=== PATIENT | male | born 1960 | race Caucasian/White ===

== ENCOUNTER 2019-10-06 05:06 | Inpatient (IN) ==
--- NOTE | 2019-09-09 12:30 | PAT Medication Instructions ---
Medication Instructions Date of Service September 09, 2019 Home Medications albuterol sulfate [ProAir HFA] 2 puff INHALATION Q6H PRN ascorbic acid (vitamin C) [Vitamin C] 1,500 mg PO QAM atorvastatin 20 mg PO HS garlic 1 tab PO QAM ibuprofen 600 mg PO Q6H PRN lisinopril 20 mg PO QAM turmeric root extract 500 mg PO QAM vitamin E 400 unit PO QAM ASK your surgeon for instructions ibuprofen 600 mg PO Q6H PRN STOP taking 2 weeks before surgery (or as soon as possible if surgery is within 2 weeks) garlic 1 tab PO QAM turmeric root extract 500 mg PO QAM vitamin E 400 unit PO QAM DO NOT take the morning of surgery ascorbic acid (vitamin C) [Vitamin C] 1,500 mg PO QAM lisinopril 20 mg PO QAM Take morning of surgery With a small sip of water, OTHERWISE NOTHING TO EAT OR DRINK AFTER MIDNIGHT: albuterol sulfate [ProAir HFA] 2 puff INHALATION Q6H PRN (use if needed; please bring with you to hospital day of surgery if possible) Take evening before surgery albuterol sulfate [ProAir HFA] 2 puff INHALATION Q6H PRN (if needed) atorvastatin 20 mg PO HS Other Notes If you have any questions please call us at [phone] or [phone] or [phone] or [phone]
--- NOTE | 2019-09-10 12:27 | Anesthesiology Consultation ---
Date of Service September 10, 2019 Assessment & Plan (1) Encounter for pre-operative examination: Chart Review Chart Review: Acceptable Risk for Surgery (pending surgeon-ordered PCP clearance 09/17 (Varsha Rivera)) and Patient seen in Pre Admission Testing Teaching & Discussion Pre-Anesthesia Teaching/Discussion Notes: Instructed NPO after midnight before surgery,except medications with 15 cc of water. Medication instructions provide d according to the PAT guidelines. History Surgery Operation Date: 10/06/19 09:00 Proposed Procedures p Right Total Anterior Hip Arthroplasty - Jorge Alberto Mariano DO Height/Weight Height: 5 ft 11 in Weight: 92.1 kg Allergies Allergy/AdvReac Type Severity Reaction Status Date / Time No Known Allergies Allergy Verified 09/08/19 08:07 Medications Home Medications Medication Instructions Recorded Confirmed Last Taken albuterol sulfate [ProAir HFA] 2 puff INHALATION Q6H PRN 09/08/19 09/08/19 Unknown ascorbic acid (vitamin C) [Vitamin 1,500 mg PO QAM 09/08/19 09/08/19 Unknown C] atorvastatin 20 mg PO HS 09/08/19 09/08/19 Unknown garlic 1 tab PO QAM 09/08/19 09/08/19 Unknown ibuprofen 600 mg PO Q6H PRN 09/08/19 09/08/19 Unknown lisinopril 20 mg PO QAM 09/08/19 09/08/19 Unknown turmeric root extract 500 mg PO QAM 09/08/19 09/08/19 Unknown vitamin E 400 unit PO QAM 09/08/19 09/08/19 Unknown Past Medical History Medical History GERD (gastroesophageal reflux disease) controlled History of bronchitis remote hx- inhaler PRN (no recent use) Hyperlipidemia Hypertension Exercise / Class Metabolic Activity II 4-5 Yardwork/Stairs/Walk up hill Past Family History Family History Father Family history of esophageal cancer Past Surgical History Surgical History H/O nasal septoplasty History of colonoscopy History of esophagogastroduodenoscopy (EGD) History of tonsillectomy Past Anesthesia History No Hx of Anesthesia Complications and No Family Hx of Anesthesia Complications History of PONV No Hx of PONV and No Hx of Motion Sickness Social History Smoking Status: Never smoker Do You Dip or Chew Tobacco: No Hx Alcohol Use: Yes Alcohol type: hard liquor alcohol intake frequency: holidays/special occasions only Hx Substance Use: No Review of Systems Reflux controlled. Patient denies chest pain, shortness of breath, dyspnea on exertion, reflux, cough, wheezing, palpitations. Physical Exam Vital Signs VITALS BP 122/79 P 79 TEMP 98.5 SP02 96%RA RESP 16 PHYSICAL Full neck and c-spine range of motion. Full TMJ range of motion. TMD 3 finger breaths Mallampati Score 2 Dentition: intact, upper front bridge, crown on molar Lungs: clear throughout to auscultation Cardiac: regular rate and rhythm, no murmurs noted Spine: normal Carotid arteries: negative bruit Extremities: no edema Testing Laboratory Results 09/10/19 12:48 PT 10.4 Seconds (9.0-12.0) 09/10/19 12:48 INR 1.0 (0.9-1.1) 09/10/19 12:48 APTT 25.6 Seconds (21.0-31.0) 09/10/19 12:48 Urine Color Yellow 09/10/19 12:48 Urine Appearance Clear (Clear) 09/10/19 12:48 Urine pH 5.0 (4.5-7.5) 09/10/19 12:48 Ur Specific [place] 1.021 (1.000-1.030) 09/10/19 12:48 Urine Protein Negative (Negative) 09/10/19 12:48 Urine Glucose (UA) Negative (Negative) 09/10/19 12:48 Urine Ketones Negative (Negative) 09/10/19 12:48 Urine Nitrite Negative (Negative) 09/10/19 12:48 Ur Leukocyte Esterase Negative (Negative) 09/10/19 12:48 Blood Type A Positive 09/10/19 12:48 Antibody Screen NEGATIVE 09/10/19 12:48 08/14/19 SODIUM 140 POTASSIUM 4.8 CHLORIDE 102 CO2 28 BUN 21 CREATININE 1.0 GLUCOSE 109 HGBA1C 6.3% Electrocardiogram Date: 09/10/19 Findings: + NSR @ (78) Chest X-Ray Date: 09/10/19 Findings: + NAD
--- NOTE | 2019-09-10 13:16 | XRay Report ---
XR chest Pre-admission PA/Lat CLINICAL HISTORY: Preoperative chest COMPARISON STUDY: No previous studies for comparison. FINDINGS: The cardiac and mediastinal contours are normal. There is no evidence of focal pulmonary co nsolidation. There is no evidence of failure. No pleural effusions are visualized.[ IMPRESSION: No active disease in the chest. Electronically signed by: Mitch Valerio M.D. 09/10/2019 1:14 PM
[2019-09-10 14:38] LABS: Basophils # (auto) 0.09 K/uL (0-0.2); Basophils % (auto) 1.1 %; Eosinophils % (auto) 3.5 %; Hematocrit (blood only) 39.9 % (42-52); Hemoglobin 13.4 g/dL (14.0-18.0); Immature Granulocytes # (auto) 0.01 K/uL (0.00-0.02); Immature Granulocytes % (auto) 0.1 %; Lymphocytes # (auto) 2.38 K/uL (1.2-3.4); Mean Corpuscular Hemoglobin 29.8 pg (25-34); Mean Corpuscular Hgb Conc 33.6 g/dL (32-36); Mean Corpuscular Volume 88.7 fL (80-100); Mean Platelet Volume 9.6 fL (7.4-10.4); Monocytes % (auto) 8.2 %; Neutrophils # (auto) 5.01 K/uL (1.4-6.5); Neutrophils % (auto) 59.1 %; Platelet Count 317 K/uL (130-400); RDW Coefficient of Variation 13.4 % (11.5-14.5); RDW Standard Deviation 43.9 fL (36.4-46.3); White Blood Count 8.49 K/uL (4.8-10.8)
[2019-09-10 14:41] LABS: Appearance Urine Clear (Clear); Bilirubin Urine Negative (Negative); Blood Urine Negative (Negative); Color Urine Yellow; Glucose Urine UA Negative (Negative); Ketones Urine Negative (Negative); Leukocyte Esterase Urine Negative (Negative); Nitrite Urine Negative (Negative); Protein Urine Negative (Negative); Specific Gravity Urine 1.021 (1.000-1.030); Urobilinogen Urine Negative (Negative)
[2019-09-10 14:49] LABS: Partial Thromboplastin Ratio 0.9; Partial Thromboplastin Time 25.6 Seconds (21.0-31.0); Prothrombin Time 10.4 Seconds (9.0-12.0)
--- NOTE | 2019-10-05 14:49 | History & Physical Report ---
Date of Service October 05, 2019 Assessment & Plan (1) Degenerative joint disease of right hip: I have indicated the patient for right anterior total hip replacement. The risks, benefits and complications of surgery were explained to the patient which include but not limited to infection, acute blood loss, DVT/PE, injury to nerves, vessels, bone, soft tissue, arthrofibrosis, chronic pain, failure of the prosthesis, hip dislocation, leg length discrepancy, need for additional surgery, cardiac and pulmonary events and . The patient wished to proceed with surgery and informed consent was obtained at this time. We will plan for ASA BID post-operatively for DVT prophylaxis. Upon discharge the patient will be discharged home with home health services. Appropriate clearances by PCP were obtained. History of Present Illness Chief Complaint: Right hip pain/djd Primary Care Provider: Dr. Eulalia Valencia The patient is a 59 year old male who presents with complaints of severe right hip pain and DJD. The patient has failed outpatient conservative treatments to this point which included NSAIDs, IA corticosteroid injection and a home exercise/walking program. The patient's pain and limited function have progressed to the point where they severely hinder their activities of daily living and they no longer tolerate exercise programs. They are requesting to proceed with total hip replacement surgery. Allergies Allergy/AdvReac Type Severity Reaction Status Date / Time No Known Allergies Allergy Verified 10/06/19 05:57 Home Medications Home Medications Medication Instructions Recorded Confirmed Type albuterol sulfate [ProAir HFA] 2 puff INHALATION Q6H PRN 09/08/19 09/08/19 History ascorbic acid (vitamin C) [Vitamin 1,500 mg PO QAM 09/08/19 10/06/19 History C] atorvastatin 20 mg PO HS 09/08/19 10/06/19 History garlic 1 tab PO QAM 09/08/19 09/08/19 History ibuprofen 600 mg PO Q6H PRN 09/08/19 10/06/19 History lisinopril 20 mg PO QAM 09/08/19 10/06/19 History turmeric root extract 500 mg PO QAM 09/08/19 09/08/19 History vitamin E 400 unit PO QAM 09/08/19 09/08/19 History Past Med/Surg History Medical History GERD (gastroesophageal reflux disease) controlled History of bronchitis remote hx- inhaler PRN (no recent use) Hyperlipidemia Hypertension Surgical History H/O nasal septoplasty History of colonoscopy History of esophagogastroduodenoscopy (EGD) History of tonsillectomy Family History Father Family history of esophageal cancer Social History Preferred Language: Burkinan Communication Ability: Effective Simulation Software Engineer Required: No Beliefs That Will Affect Care: None Current Living Situation: Spouse and Family Other Information That Helps Us Care for You: No Feels Safe at Home: Yes Safety Concerns: Feels Safe At This Time Smoking Status: Never smoker Do You Dip or Chew Tobacco: No ; Second Hand Exposure: Yes (FATHER SMOKED) ; Tobacco Cessation Education Requested by Patient: Yes Hx Alcohol Use: Yes Alcohol type: hard liquor Hx Substance Use: No Review of Systems Review of Systems: All systems reviewed & are unremarkable except as noted in HPI & below Constitutional: as per Subjective / HPI Physical Exam Physical Exam: RLE NVSI +EHL/FHL/TA/GS SILT grossly, +2 DP pulse, compartments soft NT, limited painful ROM of the hip, antalgic gait. Constitutional: WD/WN, vitals as above Eyes: PERRL, conjunctivae normal, anicteric sclerae ENMT: external ear and nose normal, oropharynx normal Neck: trachea midline, no thyromegaly Respiratory: normal respiratory effort, lungs clear to auscultation Cardiovascular: RRR, no murmur, no edema Gastrointestinal (Abdomen): normal bowel sounds, soft, nontender, no hepatosplenomegaly Musculoskeletal: no cyanosis or clubbing, extremities motor strength 5/5 Skin: no rashes, warm and dry Neurologic: patellar DTR's 2+ bilat, sensation intact Psychiatric: A+Ox3, euthymic affect Lymphatic: no cervical or axillary lymphadenopathy Results & Data Diagnostic Findings Multiple views of the hip demonstrates severe DJD with complete loss of the joint space. +osteophytes, +sclerosis, +subchondral cysts.
[2019-10-06] MEDS ORDERED: TRANEXAMIC ACID 1,000 MG **IV Intra-op IV SCH (06:00)
[2019-10-06] MEDS ORDERED: METOCLOPRAMIDE HCL 10 MG TABLET PO SCH (06:00)
[2019-10-06] MEDS ORDERED: FAMOTIDINE 20 MG TAB PO SCH (06:00)
[2019-10-06] MEDS ORDERED: CeleBREX 200 MG CAP PO SCH (06:00)
[2019-10-06] MEDS ORDERED: LR 500ML BOLUS, THEN 15ML/HR IV SCH (06:00)
[2019-10-06] MEDS ORDERED: ROPIVACAINE 0.5% HCL/PF 150 MG, BUPIVACAINE 0.5% MPF 30 ML, EPINEPHrine 30MG/30ML (OR U... INSTIL SCH (06:00)
[2019-10-06] MEDS ORDERED: CEFAZOLIN 2000MG 2,000 MG/15 ML SYR IV SCH (06:00)
[2019-10-06] MEDS ORDERED: dexAMETHasone 4 MG TAB PO SCH (06:00)
[2019-10-06] MEDS ORDERED: GABAPENTIN 600 MG DOSE PO SCH (06:00)
[2019-10-06] MEDS ORDERED: TRANEXAMIC ACID 1,000 MG **IV Pre-op IV SCH (06:00)
[2019-10-06] MEDS ORDERED: ACETAMINOPHEN 500 MG TAB PO SCH (06:00)
[2019-10-06] MEDS ORDERED: fentaNYL citrate 100 MCG/2 ML VIAL ONE (06:38)
[2019-10-06] MEDS ORDERED: MIDAZOLAM HCL 1 MG/ML 2ML VIAL ONE (06:38)
[2019-10-06] MEDS ORDERED: BACITRACIN INJ 50,000 UNIT VIAL ONE (06:41)
[2019-10-06] MEDS ORDERED: BUPIVACAINE 0.5 % 5 MG/1 ML PF 10ML VIAL ONE (06:41)
[2019-10-06] MEDS ORDERED: ORTHO JOINT ANESTHETIC ONE (06:41)
--- NOTE | 2019-10-06 06:47 | History & Physical Bridge Note ---
Date of Service October 06, 2019 History & Physical Bridge Note I have examined the patient, reviewed the History & Physical and in the interval since the performance of the History & Physical I have noted the following changes of clinical significance: no changes noted
[2019-10-06] MEDS ORDERED: ePHEDrine sulfate 50 MG/ML AMP IV PRN (07:05)
[2019-10-06] MEDS ORDERED: ATROPINE SULFATE 0.1 MG/ML 10ML SYR IV PRN (07:05)
[2019-10-06] MEDS ORDERED: fentaNYL citrate 100 MCG/2 ML VIAL IV PRN (07:05)
[2019-10-06] MEDS ORDERED: ONDANSETRON INJ 2 MG/ML 2 ML VIAL IV PRN ×2 (07:05→10:24)
[2019-10-06] MEDS ORDERED: LIDOCAINE HCL 2% 2 ML VIAL/AMP(20MG/ML) INFIL ONE (08:47)
[2019-10-06] MEDS ORDERED: PROPOFOL IV EMULSION 10 MG/ML 20 ML VIAL IV ONE (08:47)
--- NOTE | 2019-10-06 08:52 | Fluoroscopy Report ---
FL hip RT 1V CLINICAL HISTORY: Right anterior total hip arthroplasty COMPARISON STUDY: None. FLUOROSCOPY TIME: 52 seconds. FINDINGS: 2 fluoroscopic spot images of the right hip demonstrate a right total hip arthroplasty. The hardware appears intact. No fracture or dislocation. IMPRESSION: Fluoroscopy provided for right total hip arthroplasty. ACT 112: Negative or not required by law. Electronically signed by: Kelvin Marvin M.D. 10/06/2019 8:50 AM
--- NOTE | 2019-10-06 08:54 | Post Operative Brief Note ---
Immediate Post Op Note v1 Date of Surgery October 06, 2019 Pre & Post Diagnosis Operation Date: 10/06/19 07:00 Pre-Op Diagnosis: Right hip degenerative joint disease Post-Op Diagnosis: Right hip degenerative joint disease I identified the patient and participated in the time-out.: Yes Procedure Operation Date: 10/06/19 07:00 Actual Procedures p Right Anterior Total Hip Arthroplasty uncemented(Right) - Jorge Alberto Mariano DO Surgeon Jorge Alberto Mariano DO Fish Roe Technician Nelson Tong Estimated Blood Loss 175 Findings Consistent with Post-Op Diagnosis Fluids 1400 cc LR Specimens femoral head Anesthesia Type Spinal MAC Complications none Disposition Disposition: Recovery Room Overlapping Procedure I was present for: the critical portions of procedure. I was immediately available: during the entire case. Back up surgeon: was not required during procedure.
--- NOTE | 2019-10-06 08:58 | Operative Report ---
Post Operative Report Pre & Post Diagnosis Operation Date: 10/06/19 07:00 Pre-Op Diagnosis: Right hip degenerative joint disease Post-Op Diagnosis: Right hip degenerative joint disease I identified the patient and participated in the time-out.: Yes Procedure Operation Date: 10/06/19 07:00 Actual Procedures p Right Anterior Total Hip Arthroplasty uncemented(Right) - Jorge Alberto Mariano DO Surgeon Jorge Alberto Mariano DO Credit Compliance Officer Nelson Tong Estimated Blood Loss 175 Findings Consistent with Post-Op Diagnosis Fluids 1400 cc LR Specimens femoral head Anesthesia Type Spinal MAC Complications none Disposition Disposition: Recovery Room Indications The patient is a 59-year-old male who presents with severe progressive right hip DJD who has failed outpatient conservative treatments. I indicated the patient for a anterior total hip replacement and the risks and benefits were explained in detail which include but not limited to infection, bleeding, blood clot, damage to surrounding bone, nerves, vessels, soft tissue, hip dislocation, failure of the prosthesis, leg length discrepancy, need for additional surgery and . The patient agreed to proceed with replacement of the hip and informed consent was obtained. Appropriate clearances were obtained. Description of Procedure COMPONENTS USED: [employer] hip system: Acetabulum size 54, femur size 7 standard offset, femoral head 36-3, liner [id number], acetabular screw 25 mm x 1. DESCRIPTION OF PROCEDURE: Following satisfactory spinal anesthesia, the patient was placed supine on the OR table. The left leg was placed in the well leg love and the right leg in the traction device. The right leg was prepared with ChloraPrep and draped sterilely. A surgical timeout was performed, patient identified and site armida verified. Appropriate antibiotics were given. A standard anterior approach in the interval between the sartorius and tensor muscles was performed. Dissection was carried down through subcutaneous tissues. Electrocautery was utilized for hemostasis. Circumflex femoral vessels were identified, tied and ligated. The anterior capsular fat pad was removed and the capsulotomy was performed revealing the arthritic femoral neck and head. A femoral neck cut was made with reciprocating saw and the bone fragments removed. The acetabular self-retraining retractor was placed. Acetabular reaming was completed under fluoroscopic guidance, a 54 shell was impacted into an anatomic position and secured with a dome screw. Local anes thetic was placed and following irrigation, the polyethylene liner was placed. The femur was placed into position of external rotation, extension and adduction. Femoral canal was prepared up to the size 7 standard offset. Trial reduction with a -3 neck length head showed good soft tissue tension, leg lengths restored, and good fit and fill of the proximal canal using fluoroscopic landmarks. The hip was dislocated. The trial component was removed. The final implant was placed. The hip was irrigated with sterile saline solution and reduced. A Betadine soak was performed. After 3 minutes, the hip was once more irrigated with copious sterile saline solution with bacitracin. Radha-incisional soft tissue was injected utilizing [place] [employer] which includes a combination of Ropivicaine 0.5% 150mg, Bupivicaine 0.5%/Epinephrine 1:200,000 30ml, Toradol 30mg, Dexamethasone 4mg, Ketamine 10mg, Clonidine 100mcg and NSS 30ml solution. The capsule was then closed with 1-0 Vicryl interrupted figure of eight sutures. The fascia was closed with a running suture of #1 Vicryl, the subcutaneous tissues with 2-0 Vicryl and the skin with a running subcuticular stitch of 3-0 V-Loc. Dermabond prineo and a dry dressing were applied. The patient tolerated the procedure well and was transported to PACU in stable condition. Due to the complex nature of the procedure, the entire surgery was performed with the operational assistance of Nelson tong PA-C. The furniture removalist's assistant, under direct supervision, was involved in the actual performance of all aspects of the surgical procedure including patient positioning, hemostasis, tissue retraction, instrument management and wound closure. I attest to the content of the Intraoperative Record and any orders documented therein. Any exceptions are noted below.
[2019-10-06] MEDS ORDERED: PHENYLEPHRINE 100MCG/ML 5ML SYR ONE (09:16)
[2019-10-06] MEDS ORDERED: ePHEDrine sulfate 50 MG/ML SYR ONE (09:16)
--- NOTE | 2019-10-06 09:43 | Anesthesiology Progress Note ---
Date of Service October 06, 2019 Anesthesia Post Procedure Vital Signs Vital Signs: Temp Pulse Pulse Resp BP Pulse Ox 10/06/19 09:30 77 14 119/71 94 10/06/19 09:20 71 12 118/74 100 10/06/19 09:11 36.5 C 74 12 109/69 100 10/06/19 05:37 36.6 C 82 20 137/85 95 Pain Intensity Right Hip: Pain Intensity: 2 Transfer of Care Handoff Completed per policy Notes Mental Status: alert / awake / arousable and participated in evaluation Nausea / Vomiting: adequately controlled Pain: adequately controlled Airway Patency, RR, SpO2: stable & adequate BP & HR: stable & adequate Hydration State: stable & adequate Neuraxial Anesthesia: was administered and sensory block is resolving Anesthetic Complications: no major complications apparent and Pt Satisfied with anesthetic care
--- NOTE | 2019-10-06 10:02 | XRay Report ---
XR hip 1V RT w pelvis CLINICAL HISTORY: Postoperative evaluation. COMPARISON: None FINDINGS: Alignment of the total right hip arthroplasty is anatomic. There is no periprosthetic frac ture or unexpected radiopaque foreign body. There is an acetabular screw. Left hip joint space narrow ing with osteophytosis and subchondral sclerosis is noted. IMPRESSION: Expected findings following total right hip arthroplasty. ACT 112: Negative or not required by law. Electronically signed by: Mg Mae M.D. 10/06/2019 10:01 AM
[2019-10-06] MEDS ORDERED: OXYCODONE HCL IR 5 MG TAB (IMMEDIATE RELEASE) PO PRN (10:24)
[2019-10-06] MEDS ORDERED: NALOXONE HCL 0.4 MG/1 ML VIAL/CARP IV PRN (10:24)
[2019-10-06] MEDS ORDERED: HYDROmorphone INJ 0.5 MG/0.5 ML SYR IV PRN (10:24)
[2019-10-06] MEDS ORDERED: MAGNESIUM HYDROXIDE SUSP 30 ML UDC PO PRN (10:24)
[2019-10-06] MEDS ORDERED: bisacodyL 10 MG SUPP PR PRN (10:24)
[2019-10-06] MEDS ORDERED: METOCLOPRAMIDE HCL INJ 5 MG/ML 2 ML VIAL IV PRN (10:24)
[2019-10-06] MEDS: SODIUM CHLORIDE 0.9% 1000ML 1,000 ML IV SCH ×2 (12:11→22:27)
[2019-10-06] MEDS: KETOROLAC TROMETHAMINE 15 MG/ML VIAL IV SCH ×3 (12:11→23:07)
[2019-10-06] MEDS: ACETAMINOPHEN 500 MG TAB PO SCH ×2 (14:09→21:22)
[2019-10-06] MEDS: CEFAZOLIN 2000MG 2,000 MG/15 ML SYR IV SCH ×2 (14:09→23:07)
--- NOTE | 2019-10-06 14:21 | Orthopedic Progress Note ---
Date of Service October 06, 2019 Assessment & Plan (1) Degenerative joint disease of right hip: s/p Right anterior HUAN -ancef x 24 -DVT ppx: SCDs, TEDs, ASA BID -WBAT RLE -PT/OT -PO XR demonstrates a well aligned well fixed prothesis without fracture/dislocation -am labs -DC planning Subjective Post Operative Progress Note Patient seen sitting up in bed, comfortable, denies complaints, pain well controlled, no acute issues. Review of Systems Review of Systems: All systems reviewed & are unremarkable except as noted in HPI & below Constitutional: as per Subjective / HPI Physical Exam Physical Exam: RLE NVSI +EHL/FHL/TA/GS SILT grossly, +2 DP pulse, compartments soft NT, dressing cdi. Constitutional: WD/WN, vitals as above Results & Data Vital Signs (Past 12 Hours) Vital Signs Temp Pulse Pulse Resp BP Pulse Ox 10/06/19 13:23 36.4 C L 94 H 18 121/76 96 10/06/19 12:16 36.8 C 86 18 122/77 95 10/06/19 11:25 83 18 106/63 95 10/06/19 10:53 86 18 110/68 95 10/06/19 10:10 36.5 C 79 16 124/70 97 10/06/19 10:00 36.3 C L 78 14 110/67 97 10/06/19 09:50 75 14 128/78 99 10/06/19 09:40 80 14 133/82 97 10/06/19 09:30 77 14 119/71 94 10/06/19 09:20 71 12 118/74 100 10/06/19 09:11 36.5 C 74 12 109/69 100 10/06/19 05:37 36.6 C 82 20 137/85 95
[2019-10-06] MEDS ORDERED: SENNA 8.6 MG TAB PO SCH (21:00)
[2019-10-06] MEDS: DOCUSATE SODIUM 100 MG CAP PO SCH (21:22)
[2019-10-07] MEDS: KETOROLAC TROMETHAMINE 15 MG/ML VIAL IV SCH (05:45)
[2019-10-07] MEDS: ACETAMINOPHEN 500 MG TAB PO SCH ×2 (05:45→13:45)
[2019-10-07 05:48] LABS: Basophils # (auto) 0.01 K/uL (0-0.2); Basophils % (auto) 0.1 %; Hematocrit (blood only) 33.5 % (42-52); Hemoglobin 11.1 g/dL (14.0-18.0); Immature Granulocytes # (auto) 0.05 K/uL (0.00-0.02); Immature Granulocytes % (auto) 0.4 %; Lymphocytes # (auto) 1.09 K/uL (1.2-3.4); Lymphocytes % (auto) 7.7 %; Mean Corpuscular Hemoglobin 29.1 pg (25-34); Mean Corpuscular Hgb Conc 33.1 g/dL (32-36); Mean Corpuscular Volume 87.9 fL (80-100); Mean Platelet Volume 8.9 fL (7.4-10.4); Monocytes # (auto) 1.26 K/uL (0.11-0.59); Monocytes % (auto) 8.9 %; Neutrophils % (auto) 82.9 %; Platelet Count 247 K/uL (130-400); RDW Coefficient of Variation 13.4 % (11.5-14.5); RDW Standard Deviation 43.2 fL (36.4-46.3); Red Blood Count 3.81 M/uL (4.7-6.1); White Blood Count 14.21 K/uL (4.8-10.8)
[2019-10-07 06:22] LABS: BUN Creatinine Ratio 26.3 (10-20); Calcium 8.8 mg/dl (8.5-10.1); Creatinine Clr Calc Pharmacy 87.3 ml/min; Est GFR (African American) 95.1; Potassium 4.3 mmol/L (3.5-5.1)
--- NOTE | 2019-10-07 07:29 | Orthopedic Progress Note ---
Date of Service October 07, 2019 Assessment & Plan (1) Degenerative joint disease of right hip: s/p Right anterior HUAN POD#1 -ancef x 24 -DVT ppx: SCDs, TEDs, ASA BID -WBAT RLE -PT/OT -PO XR demonstrates a well aligned well fixed prothesis without fracture/dislocation -am labs - hgb 11.1 -DC planning - home with hh Subjective Post Operative Progress Note Patient seen sitting up in bed, comfortable, denies complaints, pain well controlled, no acute issues. Denies fevers, chills, nausea, vomiting, diarrhea, SOB or SP. Review of Systems Review of Systems: All systems reviewed & are unremarkable except as noted in HPI & below Constitutional: as per Subjective / HPI Physical Exam Physical Exam: RLE NVSI +EHL/FHL/TA/GS SILT grossly, +2 DP pulse, compartments soft NT, dressing cdi. Constitutional: WD/WN, vitals as above Results & Data Vital Signs (Past 12 Hours) Vital Signs Temp Pulse Resp BP BP Pulse Ox 10/07/19 07:15 36.7 C 75 18 146/71 H 98 10/07/19 03:30 36.5 C 69 16 121/82 98 10/06/19 23:15 36.7 C 75 16 123/75 96 10/06/19 19:35 36.7 C 98 H 18 124/79 96 Laboratory Results 10/07/19 10/07/19 Range/Units 05:25 05:25 WBC 14.21 H (4.8-10.8) K/uL RBC 3.81 L (4.7-6.1) M/uL Hgb 11.1 L (14.0-18.0) g/dL Hct 33.5 L (42-52) % MCV 87.9 (80-100) fL MCH 29.1 (25-34) pg MCHC 33.1 (32-36) g/dL RDW Std Deviation 43.2 (36.4-46.3) fL RDW Coeff of [place] 13.4 (11.5-14.5) % Plt Count 247 (130-400) K/uL MPV 8.9 (7.4-10.4) fL Immature Gran % (Auto) 0.4 % Neut % (Auto) 82.9 % Lymph % (Auto) 7.7 % Lamb % (Auto) 8.9 % Eos % (Auto) 0.0 % Baso % (Auto) 0.1 % Immature Gran # (Auto) 0.05 H (0.00-0.02) K/uL Neut # (Auto) 11.80 H (1.4-6.5) K/uL Lymph # (Auto) 1.09 L (1.2-3.4) K/uL Lamb # (Auto) 1.26 H (0.11-0.59) K/uL Eos # (Auto) 0.00 (0-0.5) K/uL Baso # (Auto) 0.01 (0-0.2) K/uL Sodium 137 (136-145) mmol/L Potassium 4.3 (3.5-5.1) mmol/L Chloride 108 H (98-107) mmol/L Carbon Dioxide 26 (21-32) mmol/L Anion Gap 3.0 (3-11) BUN 26 H (7-18) mg/dl Creatinine 1.00 (0.6-1.4) mg/dl Est Cr Clr Drug Dosing 87.3 ml/min Est GFR ( Amer) 95.1 Est GFR (Non-Af Amer) 82.0 BUN/Creatinine Ratio 26.3 H (10-20) Glucose 131 H (70-99) mg/dl Calcium 8.8 (8.5-10.1) mg/dl
[2019-10-07] MEDS: DOCUSATE SODIUM 100 MG CAP PO SCH (08:35)
[2019-10-07] MEDS ORDERED: MULTIVITAMIN TAB PO SCH (09:00)
[2019-10-07] MEDS ORDERED: CeleBREX 200 MG CAP PO SCH (09:00)
[2019-10-07] MEDS ORDERED: ASPIRIN 325 MG ECTAB PO SCH (09:00)
--- NOTE | 2019-10-07 10:55 | Anesthesiology Progress Note ---
Date of Service October 07, 2019 Anesthesia Post Procedure Vital Signs Vital Signs: Temp Pulse Resp BP BP Pulse Ox 10/07/19 09:38 98 10/07/19 07:15 36.7 C 75 18 146/71 H 98 10/07/19 03:30 36.5 C 69 16 121/82 98 10/06/19 23:15 36.7 C 75 16 123/75 96 10/06/19 19:35 36.7 C 98 H 18 124/79 96 10/06/19 15:05 36.7 C 82 18 115/75 96 10/06/19 13:23 36.4 C L 94 H 18 121/76 96 10/06/19 12:16 36.8 C 86 18 122/77 95 10/06/19 11:25 83 18 106/63 95 Pain Intensity Right Hip: Pain Intensity: 2 Notes Mental Status: alert / awake / arousable and participated in evaluation Patient Amnestic to Procedure: Yes Nausea / Vomiting: adequately controlled Pain: adequately controlled Airway Patency, RR, SpO2: stable & adequate BP & HR: stable & adequate Hydration State: stable & adequate Neuraxial Anesthesia: was administered and sensory block resolved Anesthetic Complications: no major complications apparent
[2019-10-07 11:16] VITALS: BP 120/72; PULSE 77; TEMP 98.4; O2SAT 99
--- NOTE | 2019-10-11 13:29 | Discharge Summary ---
Date of Service October 07, 2019 Admission HPI Per Admitting Provider The patient is a 59 year old male who presents with complaints of severe right hip pain and DJD. The patient has failed outpatient conservative treatments to this point which included NSAIDs, IA corticosteroid injection and a home exercise/walking program. The patient's pain and limited function have progressed to the point where they severely hinder their activities of daily living and they no longer tolerate exercise programs. They are requesting to proceed with total hip replacement surgery. Principal Diagnosis Right anterior total hip replacement Discharge Exam RLE NVSI +EHL/FHL/TA/GS SILT grossly, +2 DP pulse, compartments soft NT, dressing cdi. Constitutional WD/WN, vitals as above Discharge Data Allergies Allergy/AdvReac Type Severity Reaction Status Date / Time No Known Allergies Allergy Verified 10/06/19 05:57 Consultations 10/07/19 08:00 Consult Case Management - Discharge Planning Routine Procedures Performed Operation Date: 10/06/19 07:00 Actual Procedures p Right Anterior Total Hip Arthroplasty uncemented(Right) - Jorge Alberto Mariano DO Ordered Studies 10/06/19 07:00 FL fluoroscopy <1hr Routine FL hip RT 1V Routine Hospital Course (1) Degenerative joint disease of right hip: The patient is a 59 -year-old male who presents with long standing history of severe right hip DJD and failed outpatient conservative treatments. The patient's symptoms have progressed to the point where it has been difficult to perform even normal activities of daily living. I indicated the patient for a right anterior total hip arthroplasty, the risks, benefits and complications of the procedure include but not limited to infection, bleeding, damage to bone, nerves, vessels, surrounding soft tissue, may develop blood clots, loss of function, leg length discrepancy, dislocation, failure of the components, loosening of the components, the need for additional surgery and . The patient wished to proceed with surgery at this time and informed consent was obtained. Hospital Course: On 10/06/19 the patient was taken to the operating room, adequate anesthesia administered and underwent a right anterior total hip arthroplasty. The patient tolerated the procedure well and was taken to the PACU in stable condition. Post-operatively the patient was started on a DVT ppx medication and given appropriate IV antibiotics. Consults were placed to physical therapy, occupational therapy and case management. On POD#1, the patient did well overnight and their pain was well controlled. Labs were drawn and the Hgb was 11.1. The patient progressed well with PT. Dressings were changed at this time and the incision was clean, dry and intact. The patients hospital stay was relatively uneventful and they were deemed stable by the orthopedic team and consultants to be discharged home with HH on 10/07/19. Discharge Instructions: Upon discharge the patient may weight bear as tolerates through their operative extremity. They were instructed to keep the incision clean and dry at all times. The patient may shower but should not submerge the incision, avoid bathing, pools and hot tubes. The patient was given a script for pain medication and should take as instructed. The patient was given a script for DVT ppx 325mg ASA BID and should take as directed. The patient was instructed to not drive or travel for long distances until cleared to do so. If the patient develops any symptoms of fevers, chills, nausea, vomiting, increased redness, swelling, pain or drainage from the surgical site, they should notify the office and/or proceed to the nearest emergency room. The patient should follow up in 10-14 days after surgery for their routine post-operative follow-up appointment and should call the office to confirm the date and time. s/p Right anterior HUAN POD#1 -ancef x 24 -DVT ppx: SCDs, TEDs, ASA BID -WBAT RLE -PT/OT -PO XR demonstrates a well aligned well fixed prothesis without fracture/dislocation -am labs - hgb 11.1 -DC planning - home with Total Time Total Time Spent Total Time Spent (In Minutes): 45 minutes Discharge Plan Discharge Items Patient Disposition: Home - Home Health Services Reason For Visit: RIGHT HIP OSTEOARTHRITIS Discharge Diagnosis: Right anterior total hip replacement Condition on Discharge: Good Activity: Per Instructions section Lifting: Wait until after follow-up appointment Bathing: Keep incision dry Bathing Comment: No bathing, pools or hot tubs. Sexual Activity: Wait until after follow-up appointment Exercise/Sports: Wait until after follow-up appointment Driving/Machine Use: No driving Weightbearing: Full weightbearing Non-emergency contact: Primary Care Provider and Surgeon Call non-emergency contact if: you have any medication questions, your symptoms worsen, your pain is not controlled, your pain is worsening, your pain is unusual for you, your pain is concerning for you, you have a fever, your temperature is above 101, your wound has increased redness, your wound has increased drainage and your wound pain has increased Follow-up/Referrals: Ami Randolph PA-C [Primary Care Provider] - Diet: Regular Addtl Attending Provider Instructions: ACTIVITY RECOMMENDATIONS: SELF CARE INSTRUCTIONS AFTER TOTAL HIP REPLACEMENT : Direct Anterior Approach Until the incision and soft tissues around your hip have healed, there is a possibility that the hip prosthesis could dislocate. A. Hip flexion ( Up & Down out of chair or steps ) may be difficult. This is normal. B. Numbness in front of the thigh is also normal for a few weeks. C. Use hand rails when walking on stairs. D. Wear low heeled shoes with non-slip soles. E. Be sure that your floors are free of things that could trip you - throw rugs, electrical cords, small objects. Avoid wet and waxed floors, especially with crutches and canes. F. Try to walk several times a day with rest periods between. G. Continue with all the exercises taught to you in the hospital. Again, make walking a part of your daily routine. SPECIAL CARE INSTRUCTIONS: VERY IMPORTANT TO READ AND REVIEW A. You may still be at risk for phlebitis and blood clots. 1. Wear surgical stockings (LAINE hose) for 2 weeks after surgery to improve circulation and reduce swelling. 2. Take Aspirin 325mg twice daily for 4 weeks or as directed by your doctor. This is your blood thinner. 3. High risk patients may be prescribed a stronger blood thinner if necessary. 4. If you are on Coumadin normally, your family doctor/flat drier should monitor your blood work. Expect a phone call the day of or the day after bloodwork is drawn to adjust your dosage. B. You must take antibiotics before having dental work, bladder, bowel and other surgery. Your doctor will provide you with a permanent card to carry describing precautions. C. Call [facility] if you have a fever, redness or swelling around the incision, cloudy drainage from incision, or sudden increase in pain in your hip, not relieved by your regular pain medication. D. Please call the office at if you have any concerns or questions about your operation or recovery. * YOU MAY SHOWER, NO TUB BATHS UNTIL CLEARED BY YOUR DOCTOR. - Keep an extra close eye on the top portion of your incision. Be sure to keep clean & dry. * WEAR LAINE HOSE 20 HOURS PER DAY FOR 2 WEEKS. * YOU MAY PROGRESS FROM A WALKER, TO A CANE, TO INDEPENDENT AT YOUR OWN PACE. * MOST PATIENTS WILL HAVE HOME NURSING FOR THERAPY. IF YOU DECIDE TO DO OUTPATIENT PHYSICAL THERAPY, PLEASE SCHEDULE THIS 3 TIMES PER WEEK. * DERMABOND Prineo- This is a mesh tape dressing that is covered with glue. It should remain in place until the incision is properly healed, usually 10-14 days. This dressing is designed to naturally slough off. You may trim the excess mesh tape as it peels off. Incision may be briefly wet in a shower. Dry immediately by blotting with a clean, dry towel. Do not bath or swim until instructed by your doctor. Do not scratch, rub, or pick at the dressing. Do not apply any topical ointments or lotions until dressing is completely removed and/or instructed by your doctor. There may be a small piece of suture material at one end of your incision. Do not pull or trim this. If it is bothersome or catching on clothing, you may cover it with a band-aid. FOLLOW UP VISIT: If appointment is not already scheduled: Please call [facility] to make a follow-up appointment for 2 weeks after your surgery at . Pending Studies at Discharge: No Stand-Alone Forms: [facility], Opioid Pain Management, Smoking Cessation Medications and DC Order Prescriptions: New celecoxib [Celebrex] 200 mg Capsule 200 mg PO BID PRN (Reason: pain/inflammation) Qty: 28 RF: 0 acetaminophen 500 mg Tablet 1,000 mg PO Q8 PRN (Reason: pain/fever) Qty: 90 RF: 0 aspirin 325 mg Tablet,Delayed Release (Dr/Ec) 325 mg PO BID Qty: 56 RF: 0 oxycodone 5 mg Tablet 5 mg PO Q6H MDD 6 tabs PRN (Reason: pain) Qty: 30 RF: 0 sennosides [Senokot] 8.6 mg Tablet 17.2 mg PO HS PRN (Reason: constipation) Qty: 28 RF: 0 Continued atorvastatin 20 mg Tablet 20 mg PO HS RF: 0 lisinopril 20 mg Tablet 20 mg PO QAM RF: 0 ascorbic acid (vitamin C) [Vitamin C] 500 mg Tablet 1,500 mg PO QAM RF: 0 vitamin E 400 unit Capsule 400 unit PO QAM RF: 0 garlic Tablet 1 tab PO QAM RF: 0 turmeric root extract 500 mg Capsule 500 mg PO QAM RF: 0 albuterol sulfate [ProAir HFA] 90 mcg/actuation Hfa Aerosol Inhaler 2 puff INHALATION Q6H PRN (Reason: Congestion) RF: 0 Discontinued ibuprofen 200 mg Capsule 600 mg PO Q6H PRN (Reason: Pain) RF: 0 Discharge Orders: Discharge Order (Routine); Ordered 10/07/19 Ordered By: Tyron Bowens/Other Patient Handouts: Surgery Prevent DVT After Admission Data Admit Date/Time: 10/06/19 09:29 Attending Provider: Jorge Alberto Mariano Admit Provider: Jorge Alberto Mariano Primary Care Provider: Ami Randolph Other Interventions: Discharge Summary Assessment (RN) Last Done: 10/07/19 13:33 DC Date/Time DO NOT enter until pt leaves facility: 10/07/19 14:45
== END 2019-10-07 14:45 | disposition home health service (06) | DRG 470 ==
LOC: ASU 05:06 → 3E 09:29

== ENCOUNTER 2021-03-29 05:02 | Observation (INO) ==
--- NOTE | 2021-03-07 10:24 | PAT Medication Instructions ---
Medication Instructions Date of Service March 07, 2021 Home Medications Medication Instructions Recorded acetaminophen 1,000 mg PO Q8 PRN #90 tab 10/06/19 albuterol sulfate [ProAir HFA] 2 puff INHALATION Q6H PRN ascorbic acid (vitamin C) [Vitamin C] 1,500 mg PO QAM atorvastatin 20 mg PO HS garlic 1 tab PO QAM lisinopril 20 mg PO QAM turmeric root extract 500 mg PO QAM vitamin E 400 unit PO QAM acetaminophen 1,000 mg PO Q8 PRN meloxicam 15 mg PO HS PRN zinc 50 mg PO QAM ASK your surgeon for instructions meloxicam 15 mg PO HS PRN STOP taking 2 weeks before surgery (or as soon as possible if surgery is within 2 weeks) garlic 1 tab PO QAM turmeric root extract 500 mg PO QAM vitamin E 400 unit PO QAM DO NOT take the morning of surgery ascorbic acid (vitamin C) [Vitamin C] 1,500 mg PO QAM lisinopril 20 mg PO QAM zinc 50 mg PO QAM Take morning of surgery With a small sip of water, OTHERWISE NOTHING TO EAT OR DRINK AFTER MIDNIGHT: albuterol sulfate [ProAir HFA] 2 puff INHALATION Q6H PRN (use if needed; please bring rescue inhaler with you to hospital day of surgery if possible) acetaminophen 1,000 mg PO Q8 PRN (okay to take up to 4 hours prior to surgery if needed) Take evening before surgery albuterol sulfate [ProAir HFA] 2 puff INHALATION Q6H PRN (if needed) atorvastatin 20 mg PO HS acetaminophen 1,000 mg PO Q8 PRN (if needed) Other Notes If you have any questions please call us at [phone] or [phone] or [phone] or [phone]
--- NOTE | 2021-03-08 09:32 | Anesthesiology Consultation ---
Date of Service March 08, 2021 Assessment & Plan (1) Encounter for pre-operative examination: Chart Review Chart Review: Acceptable Risk for Surgery (pending preop Covid testing results ) and Patient seen in Pre Admission Testing Per PAT appt on 03/08/21, pt resides in [facility]. Wears mask, uses good hand hygiene and socially distances. 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 Travels to [facility] for medical appts. No known Covid positive contacts or Covid related symptoms. No known Covid infection in the past 90 days . Preop Covid testing scheduled 03/25/21= will await results. Educated on importance of self quarantining, social distancing and wearing mask in public both for the patient after Covid testing done. Pt fully vaccinated. Right anterior HUAN 10/06/19= Done under SAB at L3 with 1 attempt. No anesthesia issues noted per anesthesia record. Teaching & Discussion Pre-Anesthesia Teaching/Discussion Notes: Instructed NPO after midnight before surgery,except medications with 15 cc of water. Medication instructions provided according to the [facility] guidelines. History Surgery Operation Date: 03/29/21 07:15 Proposed Procedures p Left Total Hip Arthroplasty - Anterior - Jorge Alberto Mariano DO Height/Weight Height: 5 ft 11 in Weight: 93.2 kg Allergies Allergy/AdvReac Type Severity Reaction Status Date / Time No Known Allergies Allergy Verified 03/07/21 09:00 Medications Home Medications Medication Instructions Recorded Confirmed Last Taken albuterol sulfate [ProAir HFA] 2 puff INHALATION Q6H PRN 09/08/19 03/07/21 09/22/19 05:00 ascorbic acid (vitamin C) [Vitamin 1,500 mg PO QAM 09/08/19 03/07/21 09/22/19 05:00 C] atorvastatin 20 mg PO HS 09/08/19 03/07/21 10/05/19 07:00 garlic 1 tab PO QAM 09/08/19 03/07/21 09/22/19 05:00 lisinopril 20 mg PO QAM 09/08/19 03/07/21 10/05/19 06:00 turmeric root extract 500 mg PO QAM 09/08/19 03/07/21 09/22/19 05:00 vitamin E 400 unit PO QAM 09/08/19 03/07/2109/22/19 05:00 acetaminophen 1,000 mg PO Q8 PRN #90 tab 10/06/19 03/07/21 Unknown meloxicam 15 mg PO HS PRN 03/07/21 03/07/21 Unknown zinc 50 mg PO QAM 03/07/21 03/07/21 Unknown Past Medical History Medical History GERD (gastroesophageal reflux disease) Well controlled and stable Diet dependent History of bronchitis remote hx- inhaler PRN-USES DURING ALLERGY SEASON PRN Hyperlipidemia Hypertension Osteoarthritis Exercise / Class Metabolic Activity II 4-5 Yardwork/Stairs/Walk up hill (one flight of stairs - no chest pain or SOB ) Past Family History Family History Father Family history of esophageal cancer Past Surgical History Surgical History H/O nasal septoplasty History of colonoscopy History of esophagogastroduodenoscopy (EGD) History of tonsillectomy History of total hip arthroplasty RIGHT-10/2019 Past Anesthesia History No Hx of Anesthesia Complications and No Family Hx of Anesthesia Complications History of PONV No Hx of PONV and No Hx of Motion Sickness Social History Smoking Status: Never smoker Do You Dip or Chew Tobacco: No Hx Alcohol Use: Yes Alcohol type: hard liquor alcohol intake frequency: a few times a month Hx Substance Use: No substance use type: does not use Review of Systems Patient denies chest pain, shortness of breath, dyspnea on exertion, cough, wheezing, palpitations. No hx of seizures, stroke, OH, apnea/snoring. No hx of blood clots or blood transfusions Physical Exam Vital Signs VITALS BP 127/82 P 70 TEMP 98.0 SP02 95% RESP 16 Constitutional no acute distress ENMT Mouth: no TMJ clicking Thyromental Distance: > or= 3.5 Finger Breadths (3.5) Mallampati Class: II Capped on molar Permanent top front bridge. Neck neck extension not limited Respiratory normal respiratory effort; no respiratory distress Auscultation: lungs clear to auscultation bilaterally; no wheezes Cardiovascular Rate/Rhythm: regular rate and regular rhythm Heart Sounds: no murmur Vessels: no carotid bruit Musculoskeletal Spine: no pain with cervical ROM Extremities: extremities normal to inspection Psychiatric Orientation: alert Lab Results Anesthesia Preop Results Results Anesthesia Widget: WBC 6.23 K/uL (4.8-10.8) 03/08/21 Hgb 12.9 g/dL (14.0-18.0) L 03/08/21 Hct 39.2 % (42-52) L 03/08/21 Plt 294 K/uL (130-400) 03/08/21 Na 140 mmol/L (136-145) 03/08/21 K 4.5 mmol/L (3.5-5.1) 03/08/21 Cl 109 mmol/L (98-107) H 03/08/21 CO2 25 mmol/L (21-32) 03/08/21 BUN 17 mg/dl (7-18) 03/08/21 Creat 0.92 mg/dl (0.6-1.4) 03/08/21 Glucose Level 103 mg/dl (70-99) H 03/08/21 PT 10.3 Seconds (9.0-12.0) 03/08/21 PTT 25.6 Seconds (21.0-31.0) 03/08/21 INR 1.0 (0.9-1.1) 03/08/21 HA1c 6.3 % (4.5-5.6) H 03/08/21 Urine Color Yellow 03/08/21 Urine Appearance Clear (Clear) 03/08/21 Urine pH 5.0 (4.5-7.5) 03/08/21 Urine Specific [place] 1.021 (1.000-1.030) 03/08/21 Urine Protein Negative (Negative) 03/08/21 Urine Glucose (UA) Negative (Negative) 03/08/21 Urine Ketones Negative (Negative) 03/08/21 Urine Blood Negative (Negative) 03/08/21 Urine Nitrite Negative (Negative) 03/08/21 Urine Bilirubin Negative (Negative) 03/08/21 Urine Urobilinogen Negative (Negative) 03/08/21 Urine Leukocyte Esterase Negative (Negative) 03/08/21 Blood Type A Positive 03/08/21 Antibody Screen NEGATIVE 03/08/21 Testing Electrocardiogram Date: 03/08/21 Findings: + NSR @ (66bpm) and + no change from (Sep 10, 2019 per cardio ) Normal EKG per cardio. Chest X-Ray Date: 03/08/21 Findings: + NAD
--- NOTE | 2021-03-26 22:36 | History & Physical Report ---
Date of Service March 29, 2021 Assessment & Plan (1) Degenerative joint disease of left hip: I have indicated the patient for left anterior total hip replacement. The risks, benefits and complications of surgery were explained to the patient which include but not limited to infection, acute blood loss, DVT/PE, injury to nerves, vessels, bone, soft tissue, arthrofibrosis, chronic pain, failure of the prosthesis, hip dislocation, leg length discrepancy, need for additional surgery, cardiac and pulmonary events and . The patient wished to proceed with surgery and informed consent was obtained at this time. We will plan for 81mg ASA BID post-operatively for DVT prophylaxis. Upon discharge the patient will be discharged home with home health services. Appropriate clearances by PCP were obtained. History of Present Illness Chief Complaint: Left hip pain/DJD Primary Care Provider: Ami Randolph PA-C The patient is a 60 year old male who presents with complaints of severe left hip pain and DJD. The patient has failed outpatient conservative treatments to this point which included NSAIDs, IA corticosteroid injection, activity modification, home exercise/walking program. The patient's pain and limited function have progressed to the point where they severely hinder their activities of daily living and they no longer tolerate exercise programs. They are requesting to proceed with total hip replacement surgery. Allergies Allergy/AdvReac Type Severity Reaction Status Date / Time No Known Allergies Allergy Verified 03/29/21 05:27 Home Medications Medication Instructions Recorded Confirmed Type albuterol sulfate [ProAir HFA] 2 puff INHALATION Q6H PRN 09/08/19 03/29/21 History ascorbic acid (vitamin C) [Vitamin 1,500 mg PO QAM 09/08/19 03/29/21 History C] atorvastatin 20 mg PO HS 09/08/19 03/29/21 History garlic 1 tab PO QAM 09/08/19 03/07/21 History lisinopril 20 mg PO QAM 09/08/19 03/29/21 History turmeric root extract 500 mg PO QAM 09/08/19 03/07/21 History vitamin E 400 unit PO QAM 09/08/19 03/07/21 History acetaminophen 1,000 mg PO Q8 PRN #90 tab 10/06/19 03/29/21 Rx meloxicam 15 mg PO HS PRN 03/07/21 03/29/21 History zinc 50 mg PO QAM 03/07/21 03/07/21 History Past Med/Surg History Medical History GERD (gastroesophageal reflux disease) Well controlled and stable Diet dependent History of bronchitis remote hx- inhaler PRN-USES DURING ALLERGY SEASON PRN Hyperlipidemia Hypertension Osteoarthritis Surgical History H/O nasal septoplasty History of colonoscopy History of esophagogastroduodenoscopy (EGD) History of tonsillectomy History of total hip arthroplasty RIGHT-10/2019 Family History Father Family history of esophageal cancer Social History Smoking Status: Never smoker Second Hand Exposure: Yes (FATHER SMOKED); Do You Dip or Chew Tobacco: No; Hx Alcohol Use: Yes Alcohol type: hard liquor Hx Substance Use: No Preferred Language: Luxembourgish Communication Ability: Effective 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 Beliefs That Will Affect Care: None marital status: Current Living Situation: Spouse and Family current occupational status: employed current occupation: [employer] Other Information That Helps Us Care for You: No Feels Safe at Home: Yes Safety Concerns: Feels Safe At This Time Assistive Devices: Walker Assistive Devices Comment: PERMANENT BRIDGE FRONT Review of Systems Review of Systems: All systems reviewed & are unremarkable except as noted in HPI & below Constitutional: as per Subjective / HPI Physical Exam Physical Exam: LLE NVSI +EHL/FHL/TA/GS SILT grossly, +2 DP pulse, compartments soft NT, limited painful ROM of the hip, antalgic gait Constitutional: WD/WN, vitals as above Eyes: PERRL, conjunctivae normal, anicteric sclerae ENMT: external ear and nose normal, oropharynx normal Neck: trachea midline, no thyromegaly Respiratory: normal respiratory effort, lungs clear to auscultation Cardiovascular: RRR, no murmur, no edema Gastrointestinal (Abdomen): normal bowel sounds, soft, nontender, no hepatosplenomegaly Musculoskeletal: no cyanosis or clubbing, extremities motor strength 5/5 Skin: no rashes, warm and dry Neurologic: patellar DTR's 2+ bilat, sensation intact Psychiatric: A+Ox3, euthymic affect Lymphatic: no cervical or axillary lymphadenopathy Results & Data Results & Data ([place]) Diagnostic Findings Multiple views of the hip demonstrates severe DJD with complete loss of the joint space. +osteophytes, +sclerosis, +subchondral cysts.
[2021-03-29] MEDS ORDERED: FAMOTIDINE 20 MG TAB PO SCH (06:00)
[2021-03-29] MEDS ORDERED: LR 500ML BOLUS, THEN 15ML/HR IV SCH (06:00)
[2021-03-29] MEDS ORDERED: TRANEXAMIC ACID 1,000 MG **IV Intra-op IV SCH (06:00)
[2021-03-29] MEDS ORDERED: TRANEXAMIC ACID 1,000 MG **IV Pre-op IV SCH (06:00)
[2021-03-29] MEDS ORDERED: dexAMETHasone 4 MG TAB PO SCH (06:00)
[2021-03-29] MEDS ORDERED: METOCLOPRAMIDE HCL 10 MG TABLET PO SCH (06:00)
[2021-03-29] MEDS ORDERED: ROPIVACAINE 0.5% HCL/PF 150 MG, BUPIVACAINE 0.75% MPF 20 ML, EPINEPHrine 30MG/30ML (OR ... INSTIL SCH (06:00)
[2021-03-29] MEDS ORDERED: ceFAZolin 2000MG 2,000 MG/15 ML SYR IV SCH (06:00)
[2021-03-29] MEDS ORDERED: ACETAMINOPHEN 500 MG TAB PO SCH (06:00)
[2021-03-29] MEDS ORDERED: GABAPENTIN 600 MG DOSE PO SCH (06:00)
[2021-03-29] MEDS ORDERED: CeleBREX 200 MG CAP PO SCH (06:00)
[2021-03-29] MEDS ORDERED: BUPIVACAINE 0.5 % 5 MG/1 ML PF 10ML VIAL ONE (06:18)
[2021-03-29] MEDS ORDERED: ORTHO JOINT ANESTHETIC ONE (06:31)
[2021-03-29] MEDS ORDERED: MIDAZOLAM HCL 1 MG/ML 2ML VIAL ONE (06:36)
[2021-03-29] MEDS ORDERED: fentaNYL citrate 100 MCG/2 ML VIAL ONE (06:37)
[2021-03-29] MEDS ORDERED: PROPOFOL IV EMULSION 10 MG/ML 20 ML VIAL IV ONE (06:38)
[2021-03-29] MEDS ORDERED: LIDOCAINE 2% 2 ML VIAL/AMP(20MG/ML) INFIL ONE (06:38)
--- NOTE | 2021-03-29 06:50 | History & Physical Bridge Note ---
Date of Service March 29, 2021 History & Physical Bridge Note I have examined the patient, reviewed the History & Physical and in the interval since the performance of the History & Physical I have noted the following changes of clinical significance: no changes noted
[2021-03-29] MEDS ORDERED: ATROPINE SULFATE 0.1 MG/ML 10ML SYR IV PRN (07:14)
[2021-03-29] MEDS ORDERED: ONDANSETRON INJ 2 MG/ML 2 ML VIAL IV PRN ×2 (07:14→10:21)
[2021-03-29] MEDS ORDERED: ePHEDrine sulfate 50 MG/ML AMP IV PRN (07:14)
[2021-03-29] MEDS ORDERED: fentaNYL citrate 100 MCG/2 ML VIAL IV PRN (07:14)
[2021-03-29] MEDS ORDERED: KETAMINE 50 MG/5 ML SYRINGE ONE (07:50)
--- NOTE | 2021-03-29 08:54 | Post Operative Brief Note ---
Immediate Post Op Note v1 Date of Surgery March 29, 2021 Pre & Post Diagnosis Operation Date: 03/29/21 07:00 Pre-Op Diagnosis: Unilaeral Primary Osteoarthritis Left Hip Post-Op Diagnosis: Unilaeral Primary Osteoarthritis Left Hip I identified the patient and participated in the time-out.: Yes Procedure Operation Date: 03/29/21 07:00 Actual Procedures p Left Anterior Total Hip Arthroplasty, Uncemented(Left) - Jorge Alberto Mariano DO Surgeon Jorge Alberto Mariano DO Recovery Unit Operator Tyron So Estimated Blood Loss 190 Findings Consistent with Post-Op Diagnosis Fluids See anesthesia report Specimens Femoral head Anesthesia Type Spinal MAC Complications none Disposition Disposition: Recovery Room Overlapping Procedure I was present for: the critical portions of procedure. I was immediately available: during the entire case. Back up surgeon: was not required during procedure.
--- NOTE | 2021-03-29 08:57 | Operative Report ---
Post Operative Report Pre & Post Diagnosis Operation Date: 03/29/21 07:00 Pre-Op Diagnosis: Unilaeral Primary Osteoarthritis Left Hip Post-Op Diagnosis: Unilaeral Primary Osteoarthritis Left Hip I identified the patient and participated in the time-out.: Yes Procedure Operation Date: 03/29/21 07:00 Actual Procedures p Left Anterior Total Hip Arthroplasty, Uncemented(Left) - Jorge Alberto Mariano DO Surgeon Jorge Alberto Mariano DO Parts Counter Specialist Tyron So Estimated Blood Loss 190 Findings Consistent with Post-Op Diagnosis Fluids See anesthesia report Specimens Femoral head Anesthesia Type Spinal MAC Complications none Disposition Disposition: Recovery Room Indications The patient is a 60-year-old male who presents with severe progressive left hip DJD who has failed outpatient conservative treatments. I indicated the patient for a anterior total hip replacement and the risks and benefits were explained in detail which include but not limited to infection, bleeding, blood clot, damage to surrounding bone, nerves, vessels, soft tissue, hip dislocation, failure of the prosthesis, leg length discrepancy, need for additional surgery and . The patient agreed to proceed with replacement of the hip and informed consent was obtained. Appropriate clearances were obtained. Description of Procedure COMPONENTS USED: [employer] hip system: Acetabulum size 54, femur size 8 standard offset, femoral head 36+0, liner 36x54, acetabular screw 25 mm x 1. DESCRIPTION OF PROCEDURE: Following satisfactory spinal anesthesia, the patient was placed supine on the OR table. The right leg was placed in the well leg love and the left leg in the traction device. The left leg was prepared with ChloraPrep and draped sterilely. A surgical timeout was performed, patient identified and site armida verified. Appropriate antibiotics were given. A standard anterior approach in the interval between the sartorius and tensor muscles was performed. Dissection was carried down through subcutaneous tissues. Electrocautery was utilized for hemostasis. Circumflex femoral vessels were identified, tied and ligated. The anterior capsular fat pad was removed and the capsulotomy was performed revealing the arthritic femoral neck and head. A femoral neck cut was made with reciprocating saw and the bone fragments removed. The acetabular self-retraining retractor was placed. Acetabular reaming was completed under fluoroscopic guidance, a 54 shell was impacted into an anatomic position and secured with a acetabular screw. Local anesthetic was placed and following irrigation, the polyethylene liner was placed. The femur was placed into position of external rotation, extension and adduction. Femoral canal was prepared up to the size 8 standard offset. Trial reduction with a 36+0 neck length head showed good soft tissue tension, leg lengths restored, and good fit and fill of the proximal canal using fluoroscopic landmarks. The hip was dislocated. The trial component was removed. The final implant was placed. The hip was irrigated with sterile saline solution and reduced. A Betadine soak was performed. After 3 minutes, the hip was once more irrigated with copious sterile saline solution with bacitracin. Radha-incisional soft tissue was injected utilizing [place] [employer] which includes a combination of Ropivicaine 0.5% 150mg, Bupivicaine 0.5%/Epinephrine 1:200,000 30ml, Toradol 30mg, Dexamethasone 4mg, Ketamine 10mg, Clonidine 100mcg and NSS 30ml solution. The capsule was then closed with 1-0 Vicryl interrupted figure of eight sutures. The fascia was closed with a running suture of #1 Vicryl, the subcutaneous tissues with 2-0 Vicryl and the skin with a running subcuticular stitch of 3-0 V-Loc. Dermabond prineo and a dry dressing were applied. The patient tolerated the procedure well and was transported to PACU in stable condition. Due to the complex nature of the procedure, the entire surgery was performed with the operational assistance of Tyron So PA-C. The learning support assistant, under direct supervision, was involved in the actual performance of all aspects of the surgical procedure including patient positioning, hemostasis, tissue retraction, instrument management and wound closure. I attest to the content of the Intraoperative Record and any orders documented therein. Any exceptions are noted below.
--- NOTE | 2021-03-29 09:55 | Orthopedic Progress Note ---
Date of Service March 29, 2021 Assessment & Plan (1) Degenerative joint disease of left hip: s/p Left anterior HUAN -ancef x 24 -DVT ppx: SCDs, TEDs, 81mg ASA BID -WBAT LLE -PT/OT -Postoperative x-ray demonstrates well aligned well fixed prosthesis without fracture dislocation -A.m. labs -DC planning Subjective Post Operative Progress Note Patient seen in PACU, comfortable, denies complaints, pain well controlled, no acute issues. Review of Systems Review of Systems: All systems reviewed & are unremarkable except as noted in HPI & below Constitutional: as per Subjective / HPI Physical Exam Physical Exam: Left lower extremity +2 dorsalis Todd pulse, compartment soft nontender, dressing clean dry and intact, still feeling effects of spinal anesthesia. Constitutional: WD/WN, vitals as above Results & Data ([facility]) Vital Signs (Past 12 Hours) Vital Signs Temp Pulse Pulse Resp BP Pulse Ox 03/29/21 09:40 36.8 C 72 14 126/81 97 03/29/21 09:30 68 14 130/79 97 03/29/21 09:20 82 14 120/79 100 03/29/21 09:18 36.5 C 78 14 131/77 97 03/29/21 05:35 36.7 C 78 20 150/86 H 97
--- NOTE | 2021-03-29 10:02 | Anesthesiology Progress Note ---
Date of Service March 29, 2021 Anesthesia Post Procedure Vital Signs Vital Signs: Temp Pulse Pulse Resp BP Pulse Ox 03/29/21 09:40 36.8 C 72 14 126/81 97 03/29/21 09:30 68 14 130/79 97 03/29/21 09:20 82 14 120/79 100 03/29/21 09:18 36.5 C 78 14 131/77 97 03/29/21 05:35 36.7 C 78 20 150/86 H 97 Transfer of Care Handoff Completed per policy Notes Mental Status: alert / awake / arousable Patient Amnestic to Procedure: Yes Nausea / Vomiting: adequately controlled Pain: adequately controlled Airway Patency, RR, SpO2: stable & adequate BP & HR: stable & adequate Hydration State: stable & adequate Neuraxial Anesthesia: was administered and sensory block is resolving Anesthetic Complications: no major complications apparent
--- NOTE | 2021-03-29 10:09 | Fluoroscopy Report ---
INTRAOPERATIVE RADIOGRAPHS CLINICAL HISTORY: Left hip arthroplasty. Fluoroscopy time: 55 seconds. FINDINGS: 2 spot fluoroscopic views of the pelvis are obtained. A bipolar left hip arthroplasty is in near-anatomic alignment. A single cortical lag screw transfixes the acetabular cup. A right hip arth roplasty is also partially imaged. There is no evidence of acute fracture on these fluoroscopic views . IMPRESSION: Intraoperative images from a left hip arthroplasty procedure as above. Electronically signed by: Harinder Farias M.D. 03/29/2021 10:08 AM
--- NOTE | 2021-03-29 10:11 | XRay Report ---
SINGLE VIEW PELVIS; SINGLE VIEW LEFT HIP CLINICAL HISTORY: Postoperative examination. FINDINGS: An AP portable view of the hips and pelvis with a crosstable lateral portable view of the l eft hip are obtained. A bipolar left hip arthroplasty is in near-anatomic alignment. A single cortica l lag screw transfixes the acetabular cup. No acute fracture is identified. Subcutaneous gas and soft tissue swelling overlying the left hip are expected postoperative changes. A right hip arthroplasty is also in place. IMPRESSION: Expected postoperative findings status post left hip arthroplasty. No acute fracture is s een. ACT 112: Negative or not required by law. Electronically signed by: Harinder Farias M.D. 03/29/2021 10:10 AM
[2021-03-29] MEDS ORDERED: bisacodyL 10 MG SUPP PR PRN (10:21)
[2021-03-29] MEDS ORDERED: oxyCODONE HCL IR 5 MG TAB (IMMEDIATE RELEASE) PO PRN (10:21)
[2021-03-29] MEDS ORDERED: HYDROmorphone INJ 0.5 MG/0.5 ML SYR IV PRN (10:21)
[2021-03-29] MEDS ORDERED: diphenhydrAMINE Capsule 25 MG CAP PO PRN (10:21)
[2021-03-29] MEDS ORDERED: NALOXONE HCL 0.4 MG/1 ML VIAL/CARP IV PRN (10:21)
[2021-03-29] MEDS ORDERED: METOCLOPRAMIDE HCL INJ 5 MG/ML 2 ML VIAL IV PRN (10:21)
[2021-03-29] MEDS ORDERED: diphenhydrAMINE 50 MG/ML VIAL IV PRN (10:21)
[2021-03-29] MEDS ORDERED: MAGNESIUM HYDROXIDE SUSP 30 ML UDC PO PRN (10:21)
[2021-03-29] MEDS: KETOROLAC TROMETHAMINE 15 MG/ML VIAL IV SCH ×3 (11:49→23:16)
[2021-03-29] MEDS: lisinopril 20 MG TAB PO SCH (11:49)
[2021-03-29] MEDS: SODIUM CHLORIDE 0.9% 1000ML 1,000 ML IV SCH ×2 (11:52→22:01)
[2021-03-29] MEDS: DOCUSATE SODIUM 100 MG CAP PO SCH ×2 (11:52→21:51)
[2021-03-29] MEDS: ACETAMINOPHEN 500 MG TAB PO SCH ×2 (14:33→21:51)
[2021-03-29] MEDS: MULTIVITAMIN TAB PO SCH (14:33)
[2021-03-29] MEDS: ceFAZolin 2000MG 2,000 MG/15 ML SYR IV SCH ×2 (16:20→23:16)
[2021-03-29] MEDS ORDERED: SENNA 8.6 MG TAB PO SCH (21:00)
[2021-03-29] MEDS ORDERED: ATORVASTATIN 20 MG TAB PO SCH (21:00)
[2021-03-29] MEDS ORDERED: Nursing to Pharmacy Communication SCH ×2 (22:00)
[2021-03-30] MEDS: KETOROLAC TROMETHAMINE 15 MG/ML VIAL IV SCH (05:53)
[2021-03-30] MEDS: ACETAMINOPHEN 500 MG TAB PO SCH (05:53)
[2021-03-30 06:12] LABS: Basophils # (auto) 0.01 K/uL (0-0.2); Basophils % (auto) 0.1 %; Hematocrit (blood only) 38.2 % (42-52); Hemoglobin 12.7 g/dL (14.0-18.0); Immature Granulocytes # (auto) 0.05 K/uL (0.00-0.02); Immature Granulocytes % (auto) 0.3 %; Lymphocytes # (auto) 1.51 K/uL (1.2-3.4); Lymphocytes % (auto) 9.3 %; Mean Corpuscular Hemoglobin 29.3 pg (25-34); Mean Corpuscular Hgb Conc 33.2 g/dL (32-36); Mean Corpuscular Volume 88.2 fL (80-100); Mean Platelet Volume 9.1 fL (7.4-10.4); Monocytes # (auto) 1.46 K/uL (0.11-0.59); Neutrophils # (auto) 13.12 K/uL (1.4-6.5); Neutrophils % (auto) 81.3 %; Platelet Count 318 K/uL (130-400); RDW Coefficient of Variation 13.4 % (11.5-14.5); Red Blood Count 4.33 M/uL (4.7-6.1); White Blood Count 16.15 K/uL (4.8-10.8)
[2021-03-30 06:31] LABS: BUN Creatinine Ratio 25.3 (10-20); Calcium 9.1 mg/dl (8.5-10.1); Creatinine Clr Calc Pharmacy 89.5 ml/min; Est GFR (African American) 93.3 ml/min; Est GFR (Non-African American) 80.5 ml/min; Potassium 4.2 mmol/L (3.5-5.1)
--- NOTE | 2021-03-30 08:16 | Orthopedic Progress Note ---
Date of Service March 30, 2021 Assessment & Plan (1) Degenerative joint disease of left hip: s/p Left anterior HUAN POD#1 -ancef x 24 -DVT ppx: SCDs, TEDs, 81mg ASA BID -WBAT LLE -PT/OT -Postoperative x-ray demonstrates well aligned well fixed prosthesis without fracture dislocation -A.m. labs - as above, hgb 12.7 -DC planning - home with Admission and Anticipated Discharge Date Admission Date: March 29, 2021 Subjective Post Operative Progress Note Patient seen sitting up in bed, comfortable, denies complaints, pain well controlled, no acute issues. Denies F/C/N/V/SOB/CP. Review of Systems Review of Systems: All systems reviewed & are unremarkable except as noted in HPI & below Constitutional: as per Subjective / HPI Physical Exam Physical Exam: LLE NVSI +EHL/FHL/TA/GS SILT grossly, +2 DP pulse, compartments soft NT, dressing cdi. Constitutional: WD/WN, vitals as above Results & Data ([facility]) Vital Signs (Past 12 Hours) Vital Signs Temp Pulse Resp BP Pulse Ox 03/30/21 03:04 36.7 C 70 18 117/71 97 03/29/21 23:00 36.5 C 69 18 127/78 97 Laboratory Results 03/30/21 03/30/21 03/30/21 Range/Units 05:53 05:53 05:53 WBC 16.15 H (4.8-10.8) K/uL RBC 4.33 L (4.7-6.1) M/uL Hgb 12.7 L (14.0-18.0) g/dL Hct 38.2 L (42-52) % MCV 88.2 (80-100) fL MCH 29.3 (25-34) pg MCHC 33.2 (32-36) g/dL RDW Std Deviation 44.0 (36.4-46.3) fL RDW Coeff of [place] 13.4 (11.5-14.5) % Plt Count 318 (130-400) K/uL MPV 9.1 (7.4-10.4) fL Immature Gran % (Auto) 0.3 % Neut % (Auto) 81.3 % Lymph % (Auto) 9.3 % [place] % (Auto) 9.0 % Eos % (Auto) 0.0 % Baso % (Auto) 0.1 % Neut # (Auto) 13.12 H (1.4-6.5) K/uL Lymph # (Auto) 1.51 (1.2-3.4) K/uL [place] # (Auto) 1.46 H (0.11-0.59) K/uL Eos # (Auto) 0.00 (0-0.5) K/uL Baso # (Auto) 0.01 (0-0.2) K/uL Immature Gran # (Auto) 0.05 H (0.00-0.02) K/uL Sodium 137 (136-145) mmol/L Potassium 4.2 (3.5-5.1) mmol/L Chloride 106 (98-107) mmol/L Carbon Dioxide 28 (21-32) mmol/L Anion Gap 3.0 (3-11) BUN 26 H (7-18) mg/dl Creatinine 1.01 (0.6-1.4) mg/dl Est Cr Clr Drug Dosing 89.5 ml/min Est GFR ( Amer) 93.3 ml/min Est GFR (Non-Af Amer) 80.5 ml/min BUN/Creatinine Ratio 25.3 H (10-20) Glucose 127 H (70-99) mg/dl Calcium 9.1 (8.5-10.1) mg/dl Hepatitis C Ab Screen Pending
[2021-03-30] MEDS: MULTIVITAMIN TAB PO SCH (08:21)
[2021-03-30] MEDS: lisinopril 20 MG TAB PO SCH (08:22)
[2021-03-30] MEDS: DOCUSATE SODIUM 100 MG CAP PO SCH (08:22)
[2021-03-30] MEDS ORDERED: ASPIRIN 81 MG ECTAB PO SCH (09:00)
--- NOTE | 2021-03-30 16:58 | Discharge Summary ---
Date of Service March 30, 2021 Admission HPI Per Admitting Provider The patient is a 60 year old male who presents with complaints of severe left hip pain and DJD. The patient has failed outpatient conservative treatments to this point which included NSAIDs, IA corticosteroid injection, activity modification, home exercise/walking program. The patient's pain and limited function have progressed to the point where they severely hinder their activities of daily living and they no longer tolerate exercise programs. They are requesting to proceed with total hip replacement surgery. Principal Diagnosis Left anterior total hip replacement Discharge Exam LLE NVSI +EHL/FHL/TA/GS SILT grossly, +2 DP pulse, compartments soft NT, dressing cdi. Constitutional WD/WN, vitals as above Discharge Data Allergies Allergy/AdvReac Type Severity Reaction Status Date / Time No Known Allergies Allergy Verified 03/29/21 05:27 Procedures Performed Operation Date: 03/29/21 07:00 Actual Procedures p Left Anterior Total Hip Arthroplasty, Uncemented(Left) - Jorge Alberto Mariano DO Ordered Studies 03/29/21 07:00 FL hip LT 1V Routine Hospital Course (1) Degenerative joint disease of left hip: Hospital Course: On 03/29/2021 the patient was taken to the operating room, adequate anesthesia administered and underwent a left anterior total hip arthroplasty. The patient tolerated the procedure well and was taken to the PACU in stable condition. Post-operatively the patient was started on a DVT ppx medication and given appropriate IV antibiotics. Consults were placed to physical therapy, occupational therapy and case management. On POD#1, the patient did well overnight and their pain was well controlled. Labs were drawn and the Hgb was 12.7. The patient progressed well with PT. rashi incisional vacuum clean dry and intact. Will maintain for 6 additional days. The patients hospital stay was relatively uneventful and they were deemed stable by the orthopedic team and consultants to be discharged home with home health on 03/30/2021. Discharge Instructions: Upon discharge the patient may weight bear as tolerated through their operative extremity. They were instructed to keep the incision clean and dry at all times. The patient may shower but should not submerge the incision, avoid bathing, pools and hot tubs. The patient was given a script for pain medication and should take as instructed. The patient was given a script for DVT ppx 81 mg ASA twice daily and should take as directed. The patient was instructed to not drive or travel for long distances until cleared to do so. If the patient develops any symptoms of fevers, chills, nausea, vomiting, increased redness, swelling, pain or drainage from the surgical site, they should notify the office and/or proceed to the nearest emergency room. The patient should follow up in 10-14 days after surgery for their routine post-operative follow-up appointment and should call the office, to confirm the date and time. s/p Left anterior HUAN POD#1 -ancef x 24 -DVT ppx: SCDs, TEDs, 81mg ASA BID -WBAT LLE -PT/OT -Postoperative x-ray demonstrates well aligned well fixed prosthesis without fracture dislocation -A.m. labs - as above, hgb 12.7 -DC planning - home with HH Total Time Total Time Spent Total Time Spent (In Minutes): 30 Discharge Plan Discharge Items Patient Disposition: Home - Home Health Services Reason For Visit: Unilaeral Primary Osteoarthritis Left Hip Discharge Diagnosis: Left anterior total hip replacement Condition on Discharge: Good Activity: Per Instructions section Lifting: Wait until after follow-up appointment Bathing: Keep incision dry Bathing Comment: No bathing, pools or hot tubs. Sexual Activity: Wait until after follow-up appointment Exercise/Sports: Wait until after follow-up appointment Driving/Machine Use: No driving. Weightbearing: Full weightbearing Non-emergency contact: Primary Care Provider and Surgeon Call non-emergency contact if: you have any medication questions, your symptoms worsen, your pain is not controlled, your pain is worsening, your pain is unusual for you, your pain is concerning for you, you have a fever, your temperature is above 101, your wound has increased redness, your wound has increased drainage and your wound pain has increased Follow-up/Referrals: Ami Randolph PA-C [Primary Care Provider] - Diet: Regular Addtl Attending Provider Instructions: ACTIVITY RECOMMENDATIONS: SELF CARE INSTRUCTIONS AFTER TOTAL HIP REPLACEMENT : Direct Anterior Approach Until the incision and soft tissues around your hip have healed, there is a possibility that the hip prosthesis could dislocate. A. Hip flexion ( Up & Down out of chair or steps ) may be difficult. This is normal. B. Numbness in front of the thigh is also normal for a few weeks. C. Use hand rails when walking on stairs. D. Wear low heeled shoes with non-slip soles. E. Be sure that your floors are free of things that could trip you - throw rugs, electrical cords, small objects. Avoid wet and waxed floors, especially with crutches and canes. F. Try to walk several times a day with rest periods between. G. Continue with all the exercises taught to you in the hospital. Again, make walking a part of your daily routine. SPECIAL CARE INSTRUCTIONS: VERY IMPORTANT TO READ AND REVIEW A. You may still be at risk for phlebitis and blood clots. 1. Wear surgical stockings (LAINE hose) for 2 weeks after surgery to improve circulation and reduce swelling. 2. Take Aspirin 81mg twice daily for 4 weeks or as directed by your doctor. This is your blood thinner. 3. High risk patients may be prescribed a stronger blood thinner if necessary. 4. If you are on Coumadin normally, your family doctor/livestock laborer should monitor your blood work. Expect a phone call the day of or the day after bloodwork is drawn to adjust your dosage. B. You must take antibiotics before having dental work, bladder, bowel and other surgery. Your doctor will provide you with a permanent card to carry describing precautions. C. Call [facility] [place] if you have a fever, redness or swelling around the incision, cloudy drainage from incision, or sudden increase in pain in your hip, not relieved by your regular pain medication. D. Please call the office at if you have any concerns or questions about your operation or recovery. * YOU MAY SHOWER, NO TUB BATHS UNTIL CLEARED BY YOUR DOCTOR. - Keep an extra close eye on the top portion of your incision. Be sure to keep clean & dry. * WEAR LAINE HOSE 20 HOURS PER DAY FOR 2 WEEKS. * YOU MAY PROGRESS FROM A WALKER, TO A CANE, TO INDEPENDENT AT YOUR OWN PACE. * MOST PATIENTS WILL HAVE HOME NURSING FOR THERAPY. IF YOU DECIDE TO DO OUTPATIENT PHYSICAL THERAPY, PLEASE SCHEDULE THIS 3 TIMES PER WEEK. * DERMABOND Prineo- This is a mesh tape dressing that is covered with glue. It should remain in place until the incision is properly healed, usually 10-14 days. This dressing is designed to naturally slough off. You may trim the excess mesh tape as it peels off. Incision may be briefly wet in a shower. Dry immediately by blotting with a clean, dry towel. Do not bath or swim until instructed by your doctor. Do not scratch, rub, or pick at the dressing. Do not apply any topical ointments or lotions until dressing is completely removed and/or instructed by your doctor. There may be a small piece of suture material at one end of your incision. Do not pull or trim this. If it is bothersome or catching on clothing, you may cover it with a band-aid. FOLLOW UP VISIT: If appointment is not already scheduled: Please call [facility] [place] to make a follow-up appointment for 2 weeks after your surgery at . Pending Studies at Discharge: No Stand-Alone Forms: [facility], Opioid Pain Management, Work/School Release, Smoking Cessation Medications and DC Order Prescriptions: New celecoxib [Celebrex] 200 mg Capsule 200 mg PO BID PRN (Reason: pain/inflammation) Qty: 30 RF: 0 aspirin 81 mg Tablet,Delayed Release (Dr/Ec) 81 mg PO BID Qty: 56 RF: 0 acetaminophen 500 mg Tablet 1,000 mg PO Q8 PRN (Reason: pain/fevers) Qty: 90 RF: 0 oxycodone 5 mg Tablet 5 mg PO Q6H MDD 4 PRN (Reason: pain) Qty: 30 RF: 0 sennosides [Senokot] 8.6 mg Tablet 17.2 mg PO HS PRN (Reason: constipation) Qty: 30 RF: 0 Continued atorvastatin 20 mg Tablet 20 mg PO HS RF: 0 lisinopril 20 mg Tablet 20 mg PO QAM RF: 0 ascorbic acid (vitamin C) [Vitamin C] 500 mg Tablet 1,500 mg PO QAM RF: 0 vitamin E 400 unit Capsule 400 unit PO QAM RF: 0 garlic Tablet 1 tab PO QAM RF: 0 turmeric root extract 500 mg Capsule 500 mg PO QAM RF: 0 albuterol sulfate [ProAir HFA] 90 mcg/actuation Hfa Aerosol Inhaler 2 puff INHALATION Q6H PRN (Reason: Congestion) RF: 0 zinc 50 mg Tablet 50 mg PO QAM RF: 0 Discontinued acetaminophen 500 mg Tablet 1,000 mg PO Q8 PRN (Reason: pain/fever) Qty: 90 RF: 0 meloxicam 15 mg Tablet 15 mg PO HS PRN (Reason: Pain) RF: 0 Discharge Orders: Discharge Order (Routine); Ordered 03/30/21 Ordered By: Jorge Alberto Bowens/Other Patient Handouts: Hip Precautions, Preventing Deep Vein Thrombosis, Understanding Hip Replacement Admission Data Admit Date/Time: 03/29/21 09:23 Attending Provider: Jorge Alberto Mariano Admit Provider: Jorge Alberto Mariano Primary Care Provider: Ami Randolph Other Providers: [facility],Home Health Other Interventions: Discharge Summary Assessment (RN) Last Done: 03/30/21 10:18
[2021-03-30] MEDS ORDERED: CeleBREX 200 MG CAP PO SCH (21:00)
== END 2021-03-30 13:57 | disposition home health service (06) ==
LOC: 3E 05:02 → ASU 05:02